=== PATIENT | female | born 1965 | race Caucasian/White ===

== ENCOUNTER → 2016-09-19 | Day surgery (SDC) | payer BC ==
[~2016-09-19] MED LIST: BCP; IOHEXOL 180 MG/ML 20 ML VIAL (for RAD DIAG) ONE; LACTATED RINGER'S 1000 ML INJ 1,000 ML ONE; PROPOFOL 200 MG/20 ML AMP IV ONE; TRIAMCINOLONE ACETONIDE 40 MG/ML VIAL ONE
--- NOTE | 2016-09-19 16:05 | TN ---
cc: REJI CAMPBELL DATE OF OPERATION: 09/19/1969 PREOPERATIVE DIAGNOSIS 1. Osteoarthritis left hip. 2. Arthrofibrosis left hip. POSTOPERATIVE DIAGNOSIS 1. Osteoarthritis left hip. 2. Arthrofibrosis left hip. PROCEDURE 1. Manipulation of left hip under anesthesia. 2. Injection of Kenalog left hip, 40 mg. 3. Arthrogram left hip. 4. Use of fluoroscopy for percutaneous guidance 5. Intraoperative x-ray left hip, two-view SURGEON Reji Campbell MD. ANESTHESIA TIVA. ESTIMATED BLOOD LOSS Blood loss is none INDICATION This a 51-year-old female with significant left hip pain. Vascular studies show evidence of moderate to advanced arthritis left hip. She is having progressive loss of range of motion. She presents for surgical treatment. PROCEDURE The patient brought to the operating given limited sedation the left leg, left hip was evaluated under anesthesia. Range of motion extension zero, flexion 80 inches rotation 10 X rotation 28, adduction and abduction 25. After manipulation range of motion, flexion was 100 degrees and 20 internal rotation 20, external rotation 30, adduction 25, abduction 35. The left hip was scrubbed alcohol followed by Hibiclens followed Chloraprep and draped sterilely. Under fluoroscopy a 22-gauge spinal needle was advanced into the anterior aspect of the hip joint. Arthrogram was performed. That showed evidence of pitting erosive changes with loss of articular cartilage. There is no evidence of subchondral cystic changes. No leak of contrast was noted. We then injected with 3 cc of 1% lidocaine plain and 40 mg of Kenalog. The needle was withdrawn. Intraoperative x-rays were obtained. The arthrogram was as previously noted. The patient awakened taken to the recovery room in satisfactory condition. Reji Campbell MD [facility] [place]/ /3:57 PM /4:01 PM
== END | disposition home or self-care (01) ==
LOC: ESDC 13:51
PROVIDERS: ATTEND Orthopaedic Surgery Orthopaedic Surgery of the Spine
DX: M16.12 Unilateral primary osteoarthritis, left hip (principal); M24.652 Ankylosis, left hip
CPT/HCPCS: 01200; 27275; 73502; J3010; J3301; J7120; Q9965

== ENCOUNTER 2017-07-08 05:35 | Inpatient (IN) | payer BC ==
--- NOTE | 2017-07-03 08:50 | MH ---
cc: DANIEL SILVEIRA DATE OF ADMISSION: 07/08/2017 ADMISSION DIAGNOSIS Osteoarthritis of the left hip, pain left hip, gait disturbance. HISTORY The patient is a 51-year-old white female who has experienced pain of her left hip of at least 2 years duration. She had noted the gradual onset of her symptoms with pain about the hip radiating into the groin area unrelated to injury or unusual activity. She had been accustomed to working out at the gym on a routine basis where she initially became symptomatic and at that time was evaluated by her primary care physician who diagnosed the patient as having bursitis and prescribed anti-inflammatory medication. Unfortunately, the patient was unable to appreciate any benefit and was encouraged to continue with her exercise activities. Her symptoms became somewhat more pronounced for which she later underwent orthopedic evaluation and was prescribed physical therapy that aggravated her symptoms and thus she was encouraged to consider total hip arthroplasty. The patient elected to continue with conservative management and in September of this year underwent a cortisone injection of her left hip that afforded the patient approximately 9 days of relief where after her pain became recurrent once again extending into the groin area. She underwent additional orthopedic evaluation and was again noted to have an osteoarthritic condition about the hip area but apparently was encouraged to continue with conservative management and utilizing a cane as an ambulatory aid while conforming to weight reduction. She was continuing to take anti-inflammatory medication that had not proven to be of any appreciable benefit. As time went by she became more symptomatic with pain that began to interfere with all ambulatory activities. She underwent additional intervention with chiropractic treatment, acupuncture and deep massage therapy, none of which provided her with any lasting relief. She was also taking Advil P.M. with minimal benefit. She presented to the undersigned physician in May of this year and reported considerable incapacitation with regards to all activities of daily living. Her x-ray studies revealed obvious degenerative changes of the left hip with hypertrophic bony reaction and subchondral cyst formation. Findings and treatment options were reviewed. The pros and cons of continuing with conservative management versus operative intervention that would involve total hip arthroplasty was outlined in detail. Emphasis was made regarding the fact that the decision to proceed with surgery would be left entirely to the patient's discretion. The patient readily admitted that she felt she had arrived at that point in time where she has been unable to appreciate any improvement with regards to all the conservative modalities that have been rendered and was at that point where she was ready to proceed with surgery as discussed. In compliance with her wishes she was presently scheduled for admission in order that total hip replacement be completed. PAST MEDICAL HISTORY, HOSPITALIZATIONS AND SURGERIES Have included appendectomy, tonsillectomy, left anterior cruciate ligament reconstruction x2, section and colonoscopy. MEDICAL ILLNESSES Include hypertension and acid reflux. CURRENT MEDICATIONS 1. Valsartan 160 milligrams daily. 2. Pantoprazole 40 milligrams daily. 3. tablet daily. 4. Tumeric 450 milligrams daily. ALLERGIES The patient denies any known drug allergies. REVIEW OF SYSTEMS She does wear glasses. Denies headache, seizure or syncope. No sinus congestion or epistaxis. Auditory acuity intact. No tinnitus. No bleeding gums or dysphagia. Denies cough, shortness of breath, upper respiratory infection, pneumonia or tuberculosis. No angina. She is medically managed for hypertension. Her appetite is good. Bowel movements are regular. No hepatitis, gallbladder disease, ulcers or hemorrhoids. There is a history of acid reflux. No urinary tract infection. No kidney stones. Fracture of the right tibia and femur as a child treated by a body cast immobilization. No psychiatric illness. Her remaining review of systems is unremarkable and noncontributory. FAMILY HISTORY 17 years, is 61 years of age and described as being in good health. One daughter, indicated to be in good health. Family history is positive for hypertension, heart disease and cancer of the larynx. SOCIAL HISTORY The patient completed a high school education. She is employed in a sales capacity. Denies active use of tobacco. Ethanol consumption socially. PHYSICAL EXAMINATION Height 5 feet 9 inches, weight 192 pounds. GENERAL: An alert, oriented, responsive 51-year-old white female who sits quietly upon examination table with no obvious distress. HEAD, EYES, EARS, NOSE AND THROAT: Pupils are equally round and reactive to light. Extraocular movements full. Sclerae clear. External nares clear. External auditory canals clear. Dental intact. Mucous membranes pink and moist. Pharynx clear. NECK: Supple. Active range of motion with no appreciable pain. Carotid pulse palpable bilaterally. Trachea midline. Thyroid without enlargement. LUNGS: Clear to auscultation and percussion. No CVA tenderness. No discomfort throughout the dorsal lumbar spine. HEART: Regular rhythm. No murmur or gallop. ABDOMEN: Abdomen is soft, nontender. Bowel sounds present. PELVIC: Per primary care physician. EXTREMITIES: Left hip, there is no localizing tenderness about the hip. There is restricted mobility of the hip joint in all ranges assessed being most pronounced with internal rotation and abduction maneuvering and pain associated with the extremes of motion. No sensation of crepitation or instability. Straight-leg raising is negative at 80 degrees. Tal sign positive. Distal sensory grossly intact. Pronounced antalgic gait. NEUROLOGIC: Cranial nerves II-XII grossly intact. IMPRESSION Osteoarthritis left hip, pain left hip, gait disturbance. PLAN Left total hip arthroplasty. The nature of the planned surgical procedure, the potential complications and risks associated, the expectations of surgery and the consent form were thoroughly reviewed with the patient in the presence of her prior to admission to the hospital. Laurel has indicated her full understanding regarding all of the above and given consent to proceed with treatment as outlined. Medical evaluation and clearance for surgery will be completed by her primary care physician, Dr. Roberto prater. Daniel Silveira MD NBS/EO /5:03 PM /8:41 AM
[~2017-07-08] VITALS: Ht 175.3 cm; Wt 89.7 kg
[~2017-07-08 05:35] MED LIST changes: -IOHEXOL 180 MG/ML 20 ML VIAL (for RAD DIAG) ONE; -LACTATED RINGER'S 1000 ML INJ 1,000 ML ONE; +PANT40TA3 PO; -PROPOFOL 200 MG/20 ML AMP IV ONE; -TRIAMCINOLONE ACETONIDE 40 MG/ML VIAL ONE; +VALS1TAB70 PO; +[UNRECOGNIZED DRUG - OTHER] PO
[2017-07-08] MEDS ORDERED: METOPROLOL TARTRATE 25 MG TAB PO PRN (06:00)
[2017-07-08] MEDS ORDERED: LACTATED RINGER'S 1000 ML IV PRN (06:00)
[2017-07-08] MEDS ORDERED: POVIDONE IODINE 7.5% SCRUB 118 ML BOTTLE TOPICAL SCH (06:00)
[2017-07-08] MEDS ORDERED: INSULIN HUMAN REGULAR 1,000 UNITS/10 ML VIAL SQ PRN (06:00)
[2017-07-08] MEDS ORDERED: ceFAZolin 2 GM PREMIX 50 ML IV SCH (06:00)
[2017-07-08] MEDS ORDERED: CHLORHEXIDINE GLUCONATE 2 % 1 PACK (2 CLOTHS) TOPICAL PRN (06:00)
[2017-07-08] MEDS ORDERED: POVIDONE IODINE 5% (ANTISEPSIS KIT) 4 APPLICATIONS EACH NARE PRN (06:00)
[2017-07-08] MEDS ORDERED: SODIUM CHLORID 0.9% 500 ML IV PRN (06:00)
[2017-07-08] MEDS ORDERED: TRANEXAMIC ACID 1 GM PRIOR TO PROCEDURE IV SCH ×2 (06:00)
[2017-07-08] MEDS ORDERED: ceFAZolin INJ 1,000 MG VIAL ONE (06:16)
[2017-07-08] MEDS ORDERED: FAMOTIDINE 20 MG/2 ML VIAL ONE (06:22)
[2017-07-08] MEDS ORDERED: ACETAMINOPHEN 1000 MG/100 ML 100 ML IV ONE (06:22)
[2017-07-08] MEDS ORDERED: TRANEXAMIC ACID 1 GM POST-OP IV SCH ×2 (09:00)
[2017-07-08] MEDS ORDERED: *morphine SULFATE 8 MG/ML PERIprocedure ONLY ONE ×2 (09:47→10:42)
[2017-07-08] MEDS ORDERED: *MEPERIDINE 25 MG INJ VIAL PERIprocedural Use ONLY ONE (09:54)
[2017-07-08] MEDS ORDERED: TRANEXAMIC ACID INJ 1,000 MG in SODIUM CHLORIDE 0.9% INJ 100 ML IV SCH (10:00)
[2017-07-08] MEDS ORDERED: Post-op Orders (for Pharmacy) MISC XX ONE (10:00)
[2017-07-08] MEDS ORDERED: MISCELLANEOUS PHARMACY INFORMATION XX ONE (10:00)
[2017-07-08] MEDS ORDERED: ACETAMINOPHEN/HYDROcodone 325 MG/5 MG TAB PO PRN (10:00)
[2017-07-08] MEDS ORDERED: NALOXONE HCL 0.4 MG/ML AMP IV PUSH PRN (10:00)
--- NOTE | 2017-07-08 10:18 | MP ---
cc: DANIEL GARCIA DATE OF SURGERY: 07/08/2017 PREOPERATIVE DIAGNOSIS Osteoarthritis of the left hip, pain left hip, gait disturbance. POSTOPERATIVE DIAGNOSIS Osteoarthritis of the left hip, pain left hip, gait disturbance. PROCEDURE Left total hip arthroplasty. SURGEON Jose. ANESTHESIA General endotracheal. INDICATIONS A 51-year-old white female with pain of her left hip of at least two years duration. She had noted the gradual onset of her symptoms unrelated to injury or unusual activity. She had been accustomed to working out at the gym on a routine basis where she initially became symptomatic and at that time was evaluated by her primary care physician who diagnosed the patient as having bursitis and prescribed anti-inflammatory medication. Unfortunately she was unable to appreciate any benefit and was encouraged to continue with her exercise activities. Her symptoms became more pronounced for which she later underwent orthopedic evaluation and was prescribed physical therapy that aggravated her symptoms, and she was encouraged thereafter to consider surgery involving total hip arthroplasty. She elected to continue with conservative management and in September of this year underwent cortisone injection of her left hip which afforded her approximately nine days of relief where after her pain became recurrent extending into the groin area. She underwent additional orthopedic evaluation and was again noted to have an osteoarthritic condition about her hip area, but apparently was encouraged to continue with conservative management while utilizing a cane as an ambulatory aid and conforming to weight reduction. She continued to take anti-inflammatory medication that had not proven to be of any appreciable benefit. She became progressively more symptomatic with pain that began to interfere with all ambulatory activities and later received chiropractic intervention, acupuncture and deep massage therapy, none of which proved to be of any lasting benefit. She was taking Advil PM with minimal benefit. She presented to the undersigned physician in May of this year and reported considerable incapacitation with regards to all activities of daily living. Her x-ray studies revealed obvious degenerative changes about her left hip with hypertrophic bony reaction and subchondral cyst formation. Findings and treatment options were reviewed at that time. The pros and cons of continuing with conservative management versus operative intervention that would involve a total hip arthroplasty were outlined in detail. Emphasis was made regarding the fact that the decision to proceed with surgery would be left entirely to the patient's discretion. The patient readily admitted that she had arrived at that point in time where she had been unable to appreciate any improvement whatsoever with regards to all conservative modalities having been rendered and was ready to proceed with surgery as discussed. In compliance with her wishes she was scheduled for admission in order that total hip replacement be completed. FORMAT Following induction of satisfactory general anesthesia by endotracheal intubation as completed per the Department of Anesthesia the patient was positioned upon the operating table in a right lateral decubitus fashion. The left hip and lower extremity proper were isolated with a U-drape thereafter being prepped with Betadine solution and draped into a sterile field in the routine manner. Prior to initiation of the actual procedure the standard timeout protocol was completed. All parameters were appropriately addressed and confirmed by operating room personnel. A standard posterolateral approach to the hip was initiated through a sharp skin incision developed through underlying subcutaneous tissue with hemostasis maintained by electrocautery. By deepening dissection the fascia overlying the gluteus musculature was exposed and thereafter sharply incised to the limits of the incision. The underlying gluteus fibers were bluntly divided and progressive dissection facilitated exposure of the short external rotators structures. The piriformis tendon was utilized as an anatomical landmark and division of these structures was completed in a superior to inferior orientation and reflected medially exposing the posterior capsule. The sciatic nerve was protected. An L-shaped capsulotomy was accomplished through which a posterior dislocation of the femoral head was completed. Examination revealed significant degenerative changes with complete erosion of articular cartilage, underlying subchondral bone exposed and hypertrophic bony reaction. The femoral template was positioned for alignment orientation. The neck was scored and thereafter divided with power saw, the amputated segment being passed to the back table as surgical specimen. Attention was initially directed to the proximal femur. Cancellus bone was harvested. A tapered reamer was inserted for alignment orientation. Sequential rasping and broaching was accomplished from 7-8 mm with the calcar eliezer being utilized at the 8 mm stage. The 8 mm stem was determined to be satisfactory. Trial component being removed attention was redirected to the acetabulum. The labrum and reactive soft tissue were sharply excised. Progressive reaming was accomplished from 46-51 mm. The 52 trial shell was positioned and determined to be satisfactory. All trial components being removed the wound was copiously irrigated with pulsating antibiotic solution, hemostasis maintained by electrocautery. Harvested cancellous bone was digitally impacted into the depths of the acetabulum and thereafter a 52 mm trabecular metal Continuum acetabular shell was firmly seated in approximately 45 degrees inclination to the horizontal in slight anteversion. A single 25 mm 6.5 cancellous screw was inserted superiorly to augment fixation. The permanent high wall acetabular liner was affixed to the acetabular shell. Attention was returned to the proximal femur. The size 8 trial femoral broach was repositioned and a trial reduction followed utilizing a 36 mm modular head with -6 mm neck length adapter. The hip readily reduced and was carried through a passive range of motion, stability being demonstrated at 90 degrees flexion and 45 degrees internal rotation. An open dislocation was completed. The trial components being removed the canal was thoroughly irrigated and dried and thereafter a size 8 standard femoral stem Echo Bi-Metric configuration was firmly seated to which a 36 mm ceramic head with -6 mm neck length adapter attached. The hip was again reduced and carried through a passive range of motion with stability demonstrated as previously noted. Final irrigation was accomplished with hemostasis maintained. The posterior capsule was repaired with 0 Vicryl suture. Piriformis tendon and short external rotator structures were re-approximated in a similar manner. Hemovac drain tubes were inserted through superior stab wounds. The fascia of the gluteus musculature was re-approximated with a running 0 Vicryl suture. The remaining portion of the wound was closed in layers in the routine manner, skin margins being re-approximated with a running subcuticular 3-0 Vicryl suture over which Steri-Strips were applied. Xeroform gauze and a bulky dry sterile dressing were placed. The patient was repositioned into a supine orientation where an abduction splint was attached. Anesthesia was discontinued. She was thereafter transferred to a hospital bed and returned to the recovery room in satisfactory condition having tolerated her operative procedure well. Estimated blood loss was approximately 400 cc as determined per Anesthesia. Implants were of the [employer] retort feeder ground bone for the acetabular component and the [place] manufacture for the femoral component. Daniel Garcia MD NBS/BT /9:41 AM /9:54 AM
[2017-07-08] MEDS: DEXT 5%-NACL 0.45% 1000 ML INJ 1,000 ML IV SCH ×2 (10:30→17:53)
[2017-07-08] MEDS ORDERED: DO NOT ADM ANY ANTICOAGULANT DRUGS PRN (10:30)
--- NOTE | 2017-07-08 11:03 | RADRPT ---
EXAM DATE/TIME: 07/08/2017 10:06 [facility] COMPARISON: No previous studies available for comparison. INDICATIONS : Post op left hip surgery. MEDICAL HISTORY : None. SURGICAL HISTORY : None. ENCOUNTER: Initial ACUITY: 1 day PAIN SCORE: 8/10 LOCATION: Left hip FINDINGS: Post surgical changes following left hip replacement are noted. Acetabular and femoral components are well-seated and satisfactorily aligned. Surgical drain is noted in place. Bony structures are intact without evidence of acute fracture. CONCLUSION: Satisfactory postoperative appearance the left hip following hip replacement. Mauro Guerin MD on July 08, 2017 at 11:01 Board Certified Radiologist. This report was verified electronically.
--- NOTE | 2017-07-08 11:34 | PD.CONS ---
[facility] By Dr. [facility] Reason for Consult Medical management Primary Care Physician Yuniel Mckee DO Diagnoses: History of Present Illness This is a 51-year-old female past medical history of hypertension and GERD who had a long history of left hip osteoarthritis along with gait disturbances because of that who presented with elective surgery with left total hip arthroplasty. [facility] consulted for medical management. Patient seen at the bedside in the PACU. During the interview she was in pain but has not pressure LUSTERER medication yet. Otherwise patient has no other complaints. She stated that her blood pressure is well controlled and that she has no other concerning medical issues. All other review of system reviewed and negative. Past Family Social History Allergies: Coded Allergies: No Known Allergies (Verified Allergy, Severe, 04/01/07) Past Medical History Hypertension GERD Past Surgical History , appendectomy, tonsillectomy, 2 left anterior cruciate ligament repair , colonoscopy Reported Medications Reported Meds & Active Scripts Active Reported Obstetrix Dha Combo Roldan ( 12/Iron/Folic/Dss/Om3) 29 Mg Iron-1 Mg-50 Mg- 387 Mg [id number] 29 Cap PO DAILY Valsartan 320 Mg Tab 165 Mg PO DAILY Pantoprazole (Pantoprazole Sodium) 40 Mg Tab 40 Mg PO DAILY Active Ordered Medications Current Medications Lactated Ringer's 1,000 ml @ 30 mls/hr Q24H PRN IV SEE LABEL COMMENTS Last administered on 07/08/17 06:15; Start 07/08/17 at 06:00; Stop 07/11/17 at 05:59 Sodium Chloride 500 ml @ 30 mls/hr [id number] PRN IV SEE LABEL COMMENTS; Start at 06:00; Stop 07/11/17 at 05:59 Metoprolol Tartrate (Lopressor) 25 mg IT SUPPORT SPECIALIST PRN PO SEE LABEL COMMENTS; Start 07/08/17 at 06:00; Stop 07/11/17 at 05:59 Povidone Iodine (Betadine 5% Antisepsis Kit) 1 applic IT SUPPORT SPECIALIST PRN EACH NARE SEE LABEL COMMENTS Last administered on 07/08/17 06:19; Start 07/08/17 at 06:00 ; Stop 07/11/17 at 05:59 Chlorhexidine Gluconate (Chlorhexidine 2% Cloth) 3 pack IT SUPPORT SPECIALIST PRN TOPICAL SEE LABEL COMMENTS Last administered on 07/08/17 05:40; Start 07/08/17 at 06:00 ; Stop 07/11/17 at 05:59 Insulin Human Regular (NovoLIN R INJ) See Protocol Table ... IT SUPPORT SPECIALIST PRN SQ SEE PROTOCOL TABLE; Start 07/08/17 at 06:00; Stop 07/11/17 at 05:59 Povidone Iodine (Betadine 7.5% Scrub) 1 applic ONCE TOPICAL Last administered on 07/08/17 06:00; Start 07/08/17 at 06:00; Stop 07/11/17 at 05:59 Cefazolin Sodium/ Dextrose 50 ml @ 100 mls/hr IT SUPPORT SPECIALIST IV Last administered on 07/08/17 06:30; Start 07/08/17 at 06:00; Stop 07/11/17 at 05:59 Tranexamic Acid 1000 mg/Sodium Chloride 110 ml @ 220 mls/hr ONCE IV Last administered on 07/08/17 06:30; Start 07/08/17 at 06:00; Stop 07/08/17 at 12:00 Tranexamic Acid 1000 mg/Sodium Chloride 110 ml @ 220 mls/hr ONCE IV ; Start at 09:00; Stop 07/08/17 at 15:00 Cefazolin Sodium (Ancef Inj) 2,000 mg STK-MED ONCE .ROUTE Last administered on 07/08/17 07:28; Start 07/08/17 at 06:16; Stop 07/08/17 at 06:17; Status DC Famotidine (Pepcid Inj) 20 mg STK-MED ONCE .ROUTE ; Start 07/08/17 at 06:22; Stop 07/08/17 at 06:23; Status DC Acetaminophen 100 ml @ As Directed STK-MED ONCE IV ; Start 07/08/17 at 06:22; Stop 07/08/17 at 06:23; Status DC Morphine Sulfate (*morphine INJ PERIprocedure ONLY) 8 mg STK-MED ONCE .ROUTE ; Start 07/08/17 at 09:47; Stop 07/08/17 at 09:48; Status DC Meperidine HCl (*DEMEROL INJ PERIprocedural ONLY) 25 mg STK-MED ONCE .ROUTE ; Start 07/08/17 at 09:54; Stop 07/08/17 at 09:55; Status DC Dextrose/Sodium Chloride 1,000 ml @ 125 mls/hr Q8H IV ; Start 07/08/17 at 09:53 Cefazolin Sodium 1000 mg/Sodium Chloride 100 ml @ 200 mls/hr Q6H IV ; Start at 13:00; Stop 07/09/17 at 01:29 Miscellaneous Information (Post-op Orders (for Pharmacy)) STAT ONCE XX ; Start 07/08/17 at 10:00; Stop 07/08/17 at 10:35; Status DC Rivaroxaban (Xarelto) 10 mg Q24H PO ; Start 07/09/17 at 09:00 Miscellaneous Medication ([facility] Pharmacy Information) ONCE ONCE XX ; Start 07/08/17 at 10:00; Stop 07/08/17 at 10:34; Status DC Acetaminophen/ Hydrocodone Bitart ([place] 5-325 Mg) 1 tab Q4H PRN PO PAIN LESS THAN 5 ON SCALE; Start 07/08/17 at 10:00 Acetaminophen/ Hydrocodone Bitart ([place] 5-325 Mg) 2 tab Q4H PRN PO PAIN SCALE 5 TO 10; Start 07/08/17 at 10:00 Acetaminophen (Tylenol) 650 mg Q6HR PRN PO FEVER > 101; Start 07/08/17 at 12:00 Tranexamic Acid 1000 mg/Sodium Chloride 110 ml @ 200 mls/hr UNSCH IV ; Start 07/08/17 at 10:00; Stop 07/08/17 at 10:36; Status DC Ondansetron HCl (Zofran Inj) 4 mg Q6H PRN IVP NAUSEA OR VOMITING; Start at 10:00 Docusate Sodium (Colace) 100 mg BID PRN PO CONSTIPATION; Start 07/08/17 at 11: 00 Zolpidem Tartrate (Ambien) 5 mg HS PRN PO SLEEP; Start 07/08/17 at 21:00 Naloxone HCl (Narcan Inj) 0.4 mg UNSCH PRN IV PUSH RESPIRATORY RATE LESS THAN 10; Start 07/08/17 at 10:00 Morphine Sulfate (Morphine 1 Mg/ ml LUSTERER) 30 mg UNSCH IV ; Start 07/08/17 at 10: 00; Stop 07/10/17 at 23:59 LUSTERER Dosage Infused (Pha) 1 Q8HR .XX ; Start 07/08/17 at 14:00 Miscellaneous Information ALL NURSING DEPARTME... UNSCH PRN .XX SEE LABEL COMMENTS; Start 07/08/17 at 10:30; Stop 07/09/17 at 10:29 Morphine Sulfate (*morphine INJ PERIprocedure ONLY) 8 mg STK-MED ONCE .ROUTE ; Start 07/08/17 at 10:42; Stop 07/08/17 at 10:43; Status DC Family History Positive family history for hypertension, heart , larynx cancer Social History Patient works in sales. Denied tobacco use. Drinks alcohol socially. Physical Exam Vital Signs Vital Signs Date Time Temp Pulse Resp B/P (MAP) Pulse Ox O2 Delivery O2 Flow Rate FiO2 07/08/17 06:06 98.1 80 20 138/81 (100) 100 Physical Exam GENERAL: This is a well-nourished, well-developed patient, in no apparent distress. SKIN: No rashes, ecchymoses or lesions. Cool and dry. HEAD: Atraumatic. Normocephalic. No temporal or scalp tenderness. EYES: Pupils equal round and reactive. Extraocular motions intact. No scleral icterus. No injection or drainage. ENT: Nose without bleeding, purulent drainage or septal hematoma. Throat without erythema, tonsillar hypertrophy or exudate. Uvula midline. Airway patent. NECK: Trachea midline. No JVD or lymphadenopathy. Supple, nontender, no meningeal signs. CARDIOVASCULAR: Regular rate and rhythm without murmurs, gallops, or rubs. RESPIRATORY: Clear to auscultation. Breath sounds equal bilaterally. No wheezes , rales, or rhonchi. GASTROINTESTINAL: Abdomen soft, non-tender, nondistended. No hepato-splenomegaly , or palpable masses. No guarding. MUSCULOSKELETAL: Extremities without clubbing, cyanosis, or edema. Limited range of motion left hip secondary to recent surgery. NEUROLOGICAL: Awake and alert. Cranial nerves II through XII intact. Motor and sensory grossly within normal limits. Five out of 5 muscle strength in all muscle groups. Normal speech. Imaging Last Impressions Hip X-Ray 07/08/17 0936 Signed Impressions: Service Date/Time: Saturday, July 08, 2017 10:06 - CONCLUSION: Satisfactory postoperative appearance the left hip following hip replacement. Mauro Guerin MD Assessment and Plan Assessment and Plan This is a 51-year-old female who had a long-standing history of severe left hip osteoarthritis who presented with elective surgery Severe left hip osteoarthritis/gait disturbances -Status post total left hip arthroplasty today 07/[address] Garcia -Management per orthopedic surgeon. Hypertension/GERD -Restart home medication. DVT prophylaxis -Per orthopedic surgeon. Discussed Condition With patient Ella Johnson MD Jul 08, 2017 11:34
[2017-07-08] MEDS ORDERED: GLYCOPYRROLATE 1 MG/5 ML SYRINGE IV PUSH ONE (12:00)
[2017-07-08] MEDS ORDERED: ONDANSETRON HCL 4 MG/2 ML VIAL IV PUSH ONE (12:00)
[2017-07-08] MEDS ORDERED: MIDAZOLAM HCL 2 MG/2 ML VIAL IV ONE (12:00)
[2017-07-08] MEDS ORDERED: DEXAMETHASONE SOD PHOS 4 MG/ML VIAL IV ONE (12:00)
[2017-07-08] MEDS ORDERED: LACTATED RINGER'S 1000 ML INJ 1,000 ML IV ONE (12:00)
[2017-07-08] MEDS ORDERED: PROPOFOL 200 MG/20 ML AMP IV ONE (12:00)
[2017-07-08] MEDS ORDERED: PHENYLEPH/NS 1000 MCG/10 ML SYR IV ONE (12:00)
[2017-07-08] MEDS ORDERED: ePHEDrine/NS 25 MG/5 ML SYR IV ONE (12:00)
[2017-07-08] MEDS ORDERED: LIDOCAINE HCL 1% PF 5 ML SYRINGE OTHER ONE (12:00)
[2017-07-08] MEDS ORDERED: ROCURONIUM INJ 50 MG/5 ML SYRINGE IV PUSH ONE (12:00)
[2017-07-08] MEDS ORDERED: NEOSTIGMINE 5 MG/5 ML SYRINGE IV PUSH ONE (12:00)
[2017-07-08] MEDS: MORPHINE SULFATE 30 MG/30 ML PCA IV SCH (12:16)
[2017-07-08] MEDS: ONDANSETRON HCL 4 MG/2 ML VIAL IVP PRN ×2 (13:38→20:35)
[2017-07-08] MEDS: PCA - TOTAL MG MORPHINE DELIVERED PER SHIFT SCH ×2 (14:00→20:40)
[2017-07-08 16:00] VITALS: BP 114/66; PULSE 79; RESP 18; TEMP 95.6; O2SAT 97
[2017-07-08] MEDS ORDERED: ZOLPIDEM TARTRATE 5 MG TAB PO PRN (21:00)
[2017-07-08 21:49] VITALS: BP 114/65; PULSE 87; RESP 16; TEMP 97.9; O2SAT 98
[2017-07-09] VITALS: BP 112/64; PULSE 95; RESP 20; TEMP 98.9; O2SAT 97
[2017-07-09] MEDS: DEXT 5%-NACL 0.45% 1000 ML INJ 1,000 ML IV SCH ×4 (00:19→20:12)
[2017-07-09 04:00] VITALS: BP 140/72; PULSE 118; RESP 20; TEMP 98.2; O2SAT 98
[2017-07-09] MEDS: PCA - TOTAL MG MORPHINE DELIVERED PER SHIFT SCH ×3 (05:40→22:00)
[2017-07-09] MEDS ORDERED: HYDR-3516 PO (06:30)
[2017-07-09] MEDS ORDERED: ASPI-183 PO (06:30)
--- NOTE | 2017-07-09 06:32 | HHI.FF ---
Face to Face Verification Diagnosis: (1) Degenerative joint disease (DJD) of hip Physical Therapy Gait training Hip: Total hip, Protocol: Left, Abduction pillow while in bed Left LE Weight Bearing: WB as tolerated Left LE Range of Motion: Active ROM Nursing Dressing Changes: Daily dressing change I have seen patient Laurel Mcclendon on 07/09/17. My clinical findings support the need for the requested home health care services because: Limited ability to care for self High risk of falls I certify that my clinical findings support that this patient is homebound because: Post-op weakness Unsteady gait/balance Unsafe to leave home unassisted Mario Alberto Garcia MD Jul 09, 2017 06:32
[2017-07-09] MEDS ORDERED: FOLDING REACHER1 MIS (06:34)
[2017-07-09] MEDS ORDERED: ADJUSTABLE COMM1 MIS (06:34)
[2017-07-09 08:00] VITALS: BP 109/69; PULSE 93; RESP 18; TEMP 99.4; O2SAT 98
[2017-07-09] MEDS: DOCUSATE SODIUM 100 MG CAP PO PRN (08:21)
[2017-07-09] MEDS: ACETAMINOPHEN/HYDROcodone 325 MG/5 MG TAB PO PRN ×4 (08:21→23:48)
[2017-07-09] MEDS: MORPHINE SULFATE 30 MG/30 ML PCA IV SCH (08:44)
[2017-07-09 09:43] LABS: HEMATOCRIT 33.8 % (35.0-46.0); REVIEW FLAG FINAL
--- NOTE | 2017-07-09 10:44 | HHI.PR ---
Subjective Remarks Follow for medical management Patient stated that she had a rough day yesterday morning. She stated that she wasn't using her STAMPING DIE TRY OUT WORKER properly. She stated that she would wait for hours before pressing her STAMPING DIE TRY OUT WORKER pump. Today that the nurse explained the pump and now she is using it correctly. Otherwise pain is better controlled. She has not taken anything oral intake yet. No bowel movement yet. Patient's urinating on her own. She remains afebrile. Objective Vitals Vital Signs Date Time Temp Pulse Resp B/P (MAP) Pulse Ox O2 Delivery O2 Flow Rate FiO2 07/09/17 08:44 18 07/09/17 08:00 99.4 93 18 109/69 (82) 98 07/09/17 05:40 18 07/09/17 04:00 98.2 118 20 140/72 (94) 98 07/09/17 00:00 98.9 95 20 112/64 (80) 97 07/08/17 21:49 97.9 87 16 114/65 (81) 98 07/08/17 20:40 18 07/08/17 16:00 95.6 79 18 114/66 (82) 97 07/08/17 12:45 98 14 94/58 (70) 99 Nasal Cannula 2 07/08/17 12:16 16 07/08/17 12:00 86 14 109/57 (74) 99 Nasal Cannula 2 07/08/17 11:00 103 14 113/57 (75) 100 Nasal Cannula 2 07/08/17 10:45 90 14 112/59 (76) 100 Nasal Cannula 2 I/O 07/08/17 07/08/17 07/08/17 07/09/17 07/09/17 07/09/17 07:00 15:00 23:00 07:00 15:00 23:00 Intake Total 1710 ml 2502 ml Output Total 460 ml 60 ml 600 ml Balance 1250 ml -60 ml 1902 ml Intake Oral 400 ml IV Total 110 ml 2102 ml Other 1600 ml Output Urine Total 600 ml Drainage Total 60 ml 60 ml Estimated Blood Loss 400 ml # Bowel Movements 0 Result Diagram: 07/09/1757 Objective Remarks GENERAL: in NAD CARDIOVASCULAR: Regular rate and rhythm without murmurs, gallops, or rubs. RESPIRATORY: Breath sounds equal bilaterally. No accessory muscle use. GASTROINTESTINAL: Abdomen soft, non-tender, nondistended. MUSCULOSKELETAL: No cyanosis, or edema. Medications and IVs Current Medications Lactated Ringer's 1,000 ml @ 30 mls/hr Q24H PRN IV SEE LABEL COMMENTS Last administered on 07/08/17 06:15; Start 07/08/17 at 06:00; Stop 07/11/17 at 05:59 Sodium Chloride 500 ml @ 30 mls/hr [id number] PRN IV SEE LABEL COMMENTS; Start at 06:00; Stop 07/11/17 at 05:59 Metoprolol Tartrate (Lopressor) 25 mg STUDENT OFFICER PRN PO SEE LABEL COMMENTS; Start 07/08/17 at 06:00; Stop 07/11/17 at 05:59 Povidone Iodine (Betadine 5% Antisepsis Kit) 1 applic STUDENT OFFICER PRN EACH NARE SEE LABEL COMMENTS Last administered on 07/08/17 06:19; Start 07/08/17 at 06:00 ; Stop 07/11/17 at 05:59 Chlorhexidine Gluconate (Chlorhexidine 2% Cloth) 3 pack STUDENT OFFICER PRN TOPICAL SEE LABEL COMMENTS Last administered on 07/08/17 05:40; Start 07/08/17 at 06:00 ; Stop 07/11/17 at 05:59 Insulin Human Regular (NovoLIN R INJ) See Protocol Table ... STUDENT OFFICER PRN SQ SEE PROTOCOL TABLE; Start 07/08/17 at 06:00; Stop 07/11/17 at 05:59 Povidone Iodine (Betadine 7.5% Scrub) 1 applic ONCE TOPICAL Last administered on 07/08/17 06:00; Start 07/08/17 at 06:00; Stop 07/11/17 at 05:59 Cefazolin Sodium/ Dextrose 50 ml @ 100 mls/hr STUDENT OFFICER IV Last administered on 07/08/17 06:30; Start 07/08/17 at 06:00; Stop 07/11/17 at 05:59 Tranexamic Acid 1000 mg/Sodium Chloride 110 ml @ 220 mls/hr ONCE IV Last administered on 07/08/17 06:30; Start 07/08/17 at 06:00; Stop 07/08/17 at 12:00 ; Status DC Tranexamic Acid 1000 mg/Sodium Chloride 110 ml @ 220 mls/hr ONCE IV Last administered on 07/08/17 12:14; Start 07/08/17 at 09:00; Stop 07/08/17 at 15:00 ; Status DC Cefazolin Sodium (Ancef Inj) 2,000 mg STK-MED ONCE .ROUTE Last administered on 07/08/17 07:28; Start 07/08/17 at 06:16; Stop 07/08/17 at 06:17; Status DC Famotidine (Pepcid Inj) 20 mg STK-MED ONCE .ROUTE ; Start 07/08/17 at 06:22; Stop 07/08/17 at 06:23; Status DC Acetaminophen 100 ml @ As Directed STK-MED ONCE IV ; Start 07/08/17 at 06:22; Stop 07/08/17 at 06:23; Status DC Morphine Sulfate (*morphine INJ PERIprocedure ONLY) 8 mg STK-MED ONCE .ROUTE Last administered on 07/08/17 09:47; Start 07/08/17 at 09:47; Stop 07/08/17 at 09:48; Status DC Meperidine HCl (*DEMEROL INJ PERIprocedural ONLY) 25 mg STK-MED ONCE .ROUTE Last administered on 07/08/17 09:54; Start 07/08/17 at 09:54; Stop 07/08/17 at 09:55; Status DC Dextrose/Sodium Chloride 1,000 ml @ 125 mls/hr Q8H IV Last administered on 00:19; Start 07/08/17 at 09:53 Cefazolin Sodium 1000 mg/Sodium Chloride 100 ml @ 200 mls/hr Q6H IV Last administered on 07/09/17 00:19; Start 07/08/17 at 13:00; Stop 07/09/17 at 01:29 ; Status DC Miscellaneous Information (Post-op Orders (for Pharmacy)) STAT ONCE XX ; Start 07/08/17 at 10:00; Stop 07/08/17 at 10:35; Status DC Rivaroxaban (Xarelto) 10 mg Q24H PO ; Start 07/09/17 at 09:00 Miscellaneous Medication ([facility] [place] Pharmacy Information) ONCE ONCE XX ; Start 07/08/17 at 10:00; Stop 07/08/17 at 10:34; Status DC Acetaminophen/ Hydrocodone Bitart ([place] 5-325 Mg) 1 tab Q4H PRN PO PAIN LESS THAN 5 ON SCALE Last administered on 07/09/17 08:21; Start 07/08/17 at 10:00 Acetaminophen/ Hydrocodone Bitart ([place] 5-325 Mg) 2 tab Q4H PRN PO PAIN SCALE 5 TO 10; Start 07/08/17 at 10:00 Acetaminophen (Tylenol) 650 mg Q6HR PRN PO FEVER > 101; Start 07/08/17 at 12:00 Tranexamic Acid 1000 mg/Sodium Chloride 110 ml @ 200 mls/hr UNSCH IV ; Start 07/08/17 at 10:00; Stop 07/08/17 at 10:36; Status DC Ondansetron HCl (Zofran Inj) 4 mg Q6H PRN IVP NAUSEA OR VOMITING Last administered on 07/08/17 20:35; Start 07/08/17 at 10:00 Docusate Sodium (Colace) 100 mg BID PRN PO CONSTIPATION Last administered on 08:21; Start 07/08/17 at 11:00 Zolpidem Tartrate (Ambien) 5 mg HS PRN PO SLEEP; Start 07/08/17 at 21:00 Naloxone HCl (Narcan Inj) 0.4 mg UNSCH PRN IV PUSH RESPIRATORY RATE LESS THAN 10; Start 07/08/17 at 10:00 Morphine Sulfate (Morphine 1 Mg/ ml STAMPING DIE TRY OUT WORKER) 30 mg UNSCH IV Last administered on 08:44; Start 07/08/17 at 10:00; Stop 07/10/17 at 23:59 STAMPING DIE TRY OUT WORKER Dosage Infused (Pha) 1 Q8HR .XX Last administered on 07/09/17 05:40; Start 07/08/17 at 14:00 Miscellaneous Information ALL NURSING DEPARTME... UNSCH PRN .XX SEE LABEL COMMENTS; Start 07/08/17 at 10:30; Stop 07/09/17 at 10:29; Status DC Morphine Sulfate (*morphine INJ PERIprocedure ONLY) 8 mg STK-MED ONCE .ROUTE Last administered on 07/08/17 10:42; Start 07/08/17 at 10:42; Stop 07/08/17 at 10:43; Status DC A/P Assessment and Plan This is a 51-year-old female who had a long-standing history of severe left hip osteoarthritis who presented with elective surgery Severe left hip osteoarthritis/gait disturbances -Status post total left hip arthroplasty on 07/[address] Garcia -Management per orthopedic surgeon. Hypertension/GERD -Continue home medication. DVT prophylaxis -On Xarelto. Discharge Planning Once pain is better controlled, patient tolerate oral intake, and has a bowel movement she is clear for discharge home with home health. Ella Johnson MD Jul 09, 2017 10:44
[2017-07-09] MEDS: RIVAROXABAN 10 MG TAB PO SCH (11:33)
[2017-07-09 12:00] VITALS: BP 96/61; PULSE 85; RESP 18; TEMP 98; O2SAT 100
[2017-07-09 16:00] VITALS: BP 138/74; PULSE 107; RESP 18; TEMP 99.2; O2SAT 98
[2017-07-09 20:00] VITALS: BP 113/69; PULSE 106; RESP 16; TEMP 99.4; O2SAT 100
[2017-07-10] VITALS (8 sets, daily range): BP systolic 88–114; BP diastolic 54–62; PULSE 96–119; RESP 18–20; TEMP 98.4–101; O2SAT 93–100
[2017-07-10] MEDS: ACETAMINOPHEN/HYDROcodone 325 MG/5 MG TAB PO PRN ×4 (04:49→20:34)
[2017-07-10] MEDS: PCA - TOTAL MG MORPHINE DELIVERED PER SHIFT SCH ×3 (06:00→22:00)
[2017-07-10] MEDS: RIVAROXABAN 10 MG TAB PO SCH (09:00)
[2017-07-10] MEDS: DEXT 5%-NACL 0.45% 1000 ML INJ 1,000 ML IV SCH ×2 (09:53→17:53)
--- NOTE | 2017-07-10 10:32 | HHI.PR ---
Subjective Remarks Patient seen and examined Complains of pounding headaches without any nausea or emesis Pain to the left hip controlled Objective Vitals Vital Signs Date Time Temp Pulse Resp B/P (MAP) Pulse Ox O2 Delivery O2 Flow Rate FiO2 07/10/17 08:00 99.9 96 18 100/54 (69) 100 07/10/17 04:00 100.9 117 18 114/57 (76) 93 07/10/17 00:00 98.9 119 18 107/55 (72) 96 07/09/17 21:13 21 07/09/17 20:00 99.4 106 16 113/69 (84) 100 07/09/17 16:00 99.2 107 18 138/74 (95) 98 07/09/17 14:00 18 07/09/17 12:00 98.0 85 18 96/61 (73) 100 I/O 07/09/17 07/09/17 07/09/17 07/10/17 07/10/17 07/10/17 07:00 15:00 23:00 07:00 15:00 23:00 Intake Total 2502 ml 960 ml 1348 ml 413 ml Output Total 600 ml 5 ml 70 ml 50 ml Balance 1902 ml 955 ml 1278 ml 363 ml Intake Oral 400 ml 960 ml 600 ml 240 ml IV Total 2102 ml 748 ml 173 ml Output Urine Total 600 ml Drainage Total 5 ml 70 ml 50 ml # Voids 3 1 0 # Bowel Movements 0 0 0 Result Diagram: 07/09/17 0833 Imaging Last Impressions Hip X-Ray 07/08/17 0953 Signed Impressions: Service Date/Time: Saturday, July 08, 2017 10:06 - CONCLUSION: Satisfactory postoperative appearance the left hip following hip replacement. Mauro Guerin MD Objective Remarks GENERAL: NAD SKIN: Warm and dry. HEAD: Normocephalic. EYES: No scleral icterus. No injection or drainage. NECK: Supple, trachea midline. No JVD or lymphadenopathy. CARDIOVASCULAR: Regular rate and rhythm without murmurs, gallops, or rubs. RESPIRATORY: Breath sounds equal bilaterally. No accessory muscle use. GASTROINTESTINAL: Abdomen soft, non-tender, nondistended. MUSCULOSKELETAL: No cyanosis, or edema. s/p left hip repair-neurovascular intact BACK: Nontender without obvious deformity. No CVA tenderness. A/P Assessment and Plan 51 yrs old female with s/p Left total hip arthroplasty Management per orthopedic surgery PT to treat and eval Pain management accordingly Tension headaches 2/2 Medication-Narco? Start Tylenol PRN May consider d/c Narco Hypertension/GERD Continue home medication. DVT prophylaxis: Xarelto Discharge Planning Discharge per orthopedic surgery Maycol Gonzalez MD Jul 10, 2017 10:32
[2017-07-10] MEDS: ACETAMINOPHEN 325 MG TAB PO PRN (13:49)
--- NOTE | 2017-07-10 17:31 | RADRPT ---
EXAM DATE/TIME: 07/10/2017 16:44 [place] COMPARISON: No previous studies available for comparison. INDICATIONS : Headache- no chest complaints. MEDICAL HISTORY : None. SURGICAL HISTORY : None. ENCOUNTER: Subsequent ACUITY: 1 day PAIN SCORE: 0/10 LOCATION: Bilateral chest FINDINGS: A single view of the chest demonstrates the lungs to be symmetrically aerated without evidence of mas s, infiltrate or effusion. The cardiomediastinal contours are unremarkable. Osseous structures are intact. CONCLUSION: 1. No acute cardiopulmonary disease. Beau Nava MD on July 10, 2017 at 17:26 Board Certified Radiologist. This report was verified electronically.
[2017-07-10 18:08] LABS: BACTERIA, URINE MOD /hpf; BLOOD, URINE NEG (NEG); COMMENT (UR) CULTURE INDICATED; CULTURE IF INDICATED CULTURE INDICATED; GLUCOSE,URINE NEG (NEG); KETONE, URINE NEG (NEG); NITRITE,URINE NEG (NEG); SQUAMOUS EPITHELIAL CELL URINE 3 /hpf (0-5); URINE COLOR LIGHT-YELLOW (YELLW/STRAW)
[2017-07-11] VITALS: BP 108/54; PULSE 102; RESP 18; TEMP 99.6; O2SAT 96
[2017-07-11] MEDS: DEXT 5%-NACL 0.45% 1000 ML INJ 1,000 ML IV SCH ×3 (01:53→08:24)
[2017-07-11 04:00] VITALS: BP 109/59; PULSE 102; RESP 18; TEMP 100; O2SAT 97
[2017-07-11] MEDS: PCA - TOTAL MG MORPHINE DELIVERED PER SHIFT SCH ×2 (06:00→08:20)
[2017-07-11] MEDS: ACETAMINOPHEN 325 MG TAB PO PRN (06:04)
[2017-07-11 08:00] VITALS: BP 114/62; PULSE 100; RESP 18; TEMP 98.4; O2SAT 96
[2017-07-11] MEDS: RIVAROXABAN 10 MG TAB PO SCH (08:23)
[2017-07-11] MEDS: DOCUSATE SODIUM 100 MG CAP PO PRN (08:23)
[2017-07-11] MEDS ORDERED: PANTOPRAZOLE SOD 40 MG DELAYED RELEASE TAB PO SCH (09:00)
--- NOTE | 2017-07-11 10:16 | HHI.PR ---
Subjective Remarks Patient seen and examined + Postop fever however currently afebrile Still complains of headaches Objective Vitals Vital Signs Date Time Temp Pulse Resp B/P (MAP) Pulse Ox O2 Delivery O2 Flow Rate FiO2 07/11/17 08:00 98.4 100 18 114/62 (79) 96 07/11/17 04:00 100.0 102 18 109/59 (76) 97 07/11/17 00:00 99.6 102 18 108/54 (72) 96 07/10/17 20:00 98.4 100 20 106/62 (77) 99 07/10/17 18:09 99 07/10/17 16:01 100.6 98 18 105/56 (72) 99 07/10/17 16:00 100.6 98 18 105/56 (72) 99 07/10/17 14:00 18 07/10/17 12:00 101.0 102 18 88/56 (67) 97 I/O 07/10/17 07/10/17 07/10/17 07/11/17 07/11/17 07/11/17 07:00 15:00 23:00 07:00 15:00 23:00 Intake Total 413 ml 853.3 ml 240 ml Output Total 50 ml Balance 363 ml 853.3 ml 240 ml Intake Oral 240 ml 360 ml 240 ml IV Total 173 ml 493.3 ml Drainage Total 50 ml # Voids 0 3 1 1 # Bowel Movements 0 0 0 Result Diagram: 07/09/17 0833 Objective Remarks GENERAL: NAD SKIN: Warm and dry. HEAD: Normocephalic. EYES: No scleral icterus. No injection or drainage. NECK: Supple, trachea midline. No JVD or lymphadenopathy. CARDIOVASCULAR: Regular rate and rhythm without murmurs, gallops, or rubs. RESPIRATORY: Breath sounds equal bilaterally. No accessory muscle use. GASTROINTESTINAL: Abdomen soft, non-tender, nondistended. MUSCULOSKELETAL: No cyanosis, or edema. s/p left hip repair-neurovascular intact BACK: Nontender without obvious deformity. No CVA tenderness. A/P Assessment and Plan 51 yrs old female with s/p Left total hip arthroplasty Management per orthopedic surgery PT to treat and eval Pain management accordingly Tension headaches 2/2 Medication-Narco? Continue Tylenol PRN Postop fever Lal culture negative so far Chest x-ray negative Encourage incentive spirometry use Hypertension/GERD Continue home medication. DVT prophylaxis: Xarelto Discharge Planning Discharge per orthopedic surgery Maycol Gonzalez MD Jul 11, 2017 10:16
[2017-07-11] MEDS ORDERED: BLOOD PRESSURE1 M20 (10:18)
[2017-07-11 11:14] VITALS: BP 110/62; PULSE 103; RESP 18; TEMP 98.9; O2SAT 96
--- NOTE | 2017-07-11 20:07 | MD ---
cc: DANIEL SILVEIRA JAMES R. DO ADMISSION DATE: 07/08/2017 DISCHARGE DATE: 07/11/2017 ADMISSION DIAGNOSIS Osteoarthritis of the left hip, pain left hip, gait disturbance. DISCHARGE DIAGNOSIS Osteoarthritis of the left hip, pain left hip, gait disturbance. HISTORY A 51-year-old white female with pain of the left hip of 2 years duration. She had noted the gradual onset of her symptoms unrelated to injury or unusual activity. She had been accustomed to working out at the gym on a routine basis where she initially became symptomatic and, thereafter, evaluated by her primary care physician who initially diagnosed the patient as having bursitis and prescribed anti-inflammatory medication. Unfortunately, she was unable to appreciate any benefit and was encouraged to continue with her exercise activities. Her symptoms became more pronounced for which she later underwent orthopedic evaluation and was prescribed physical therapy which aggravated her symptoms and she was later encouraged to consider total hip arthroplasty. She elected to continue with conservative management and in September of this year underwent a cortisone injection of her left hip that afforded her approximately 9 days of relief where after recurrent pain was again noted. Additional orthopedic evaluation resulted in the patient being diagnosed as having arthritic condition for which she was encouraged to continue with conservative management, utilize a cane as an ambulatory aid while conforming to weight reduction. She continued to utilize anti-inflammatory medication which was not proven to be of any appreciable benefit while becoming progressively more symptomatic that began to interfere with all ambulatory activities. She sought further treatment through chiropractic intervention, acupuncture and deep massage, none of which proved to be of any lasting benefit. She was taking Advil p.m. with minimal relief. She presented to the undersigned physician in May of this year reporting considerable incapacitation with regards to all activities of daily living. Her x-ray studies revealed obvious degenerative changes about the left hip with hypertrophic bony reaction and subchondral cyst formation. Findings and treatment options were reviewed. The pros and cons of continuing with additional conservative modalities versus operative intervention that would involve a total hip arthroplasty were outlined in detail. Emphasis was made regarding the fact that the decision to proceed with surgery would be left entirely to the patient's discretion. The patient readily admitted that she had arrived at that point in time where she was unable to appreciate any improvement from all conservative modalities rendered and was ready to proceed with surgery as discussed. In compliance with her wishes, she was scheduled for admission at this time in order that the above be accomplished. Physical examination at the time of admission revealed no localizing tenderness about the left hip. There was restricted mobility of the hip joint in all ranges assessed especially involving internal rotation and abduction maneuvering and pain at the extremes of motion. No sensation of crepitation instability. Straight-leg raising was negative at 80 degrees. Tal sign positive. Distal sensory grossly intact. Pronounced antalgic gait. HOSPITAL COURSE Prior to admission to the hospital, the patient had undergone medical evaluation and clearance for surgery as completed by her primary care physician, Dr. Yuniel Mckee. She was taken to the operating room on July 08, 2017 and on that date underwent a left total hip arthroplasty completed in an uncomplicated manner. The patient was noted to have tolerated her operative procedure well with her postoperative course stable thereafter. Hemoglobin/hematocrit assessment postoperatively 11.5 and 33.8 respectively. The patient was progressively mobilized under guidance of physical therapy being permitted weightbearing to tolerance about the left lower extremity. Follow up examination of her surgical wound noted to be intact healing favorably no evidence of infection. Medical followup per the hospitalist service. DVT prophylaxis initiated. library services dean consult to assist with discharge planning. The patient had expressed her desire to be discharged home and continue her rehabilitation on an outpatient basis. Plans were finalized in this regard and pending medical clearance she was scheduled for discharge on the third postoperative day at which time she was noted to be making slow but steady progress with regards to her rehab program. She was scheduled be seen in office followup in approximately 4 weeks. Her condition at the time of discharge stable. Prognosis favorable. MEDICATIONS Discharge medications included 1. Hydrocodone 12/324 #60. 2. Aspirin 325 mg 1 tablet twice daily for 4 weeks #60. MD FREDIS Jimenez/ /6:38 AM /7:52 PM
== END 2017-07-11 13:31 | disposition home health service (06) | DRG 470 ==
LOC: HSDI 05:35 → N06B 12:58
PROVIDERS: ADMIT Orthopaedic Surgery; ATTEND Orthopaedic Surgery
PROC: 0SRB04Z Replacement of Left Hip Joint with Ceramic on Polyethylene Synthetic Substitute, Open Approach (ICD-10-PCS; principal; 2017-07-08 06:37)
DX: M16.12 Unilateral primary osteoarthritis, left hip (principal); I10 Essential (primary) hypertension; K21.9 Gastro-esophageal reflux disease without esophagitis; G44.209 Tension-type headache, unspecified, not intractable; R50.82 Postprocedural fever
CPT/HCPCS: 71010; 73501; 81001; 85014; 85018; 86850; 86900; 86901; 87040; 87086; 88304; 88305; 88311; C1776; J0131; J0690; J1100; J2175; J2250; J2270; J2370; J2405; J2710; J3010; J7120